=== PATIENT | female | born 1950 | race Caucasian/White ===

== ENCOUNTER 2016-10-27 19:01 | Inpatient (IN) | payer MEDICARE, MEDICAID ==
[2016-10-27] VITALS (7 sets, daily range): BP systolic 137–199; BP diastolic 69–89; PULSE 81–146; RESP 13–18; TEMP 98.2; O2SAT 98–100
[~2016-10-27] VITALS: Ht 165.1 cm; Wt 70.5 kg
[~2016-10-27 19:01] MED LIST: ALPR-138 PO; APIX2.5T PO; ATOR20TA42 PO; FLUO.05%ST EX; HYDRA50 PO; METF500 PO; METO50TA PO; NABU500T PO; ONDA4 PO; SPIR25TA PO; SULFPOW EACH EYE; TRAZ50TA4 PO
[2016-10-27] MEDS ORDERED: SODIUM CHLORIDE 0.9% FLUSH 5 ML FLUSH IVF PRN (19:15)
[2016-10-27] MEDS ORDERED: DILTIAZEM HCL 25 MG/5 ML VIAL IV ONE ×2 (19:15→20:15)
[2016-10-27] MEDS ORDERED: SODIUM CHLOR 0.9% 1000 ML INJ 1,000 ML IV SCH (19:21)
--- NOTE | 2016-10-27 19:22 | PD ---
HPI Chief Complaint: Cardiac Complaint Time Seen by Provider: 19:12 Travel History International Travel<30 days: No Contact w/Intl Traveler<30days: No Traveled to known affect area: No History of Present Illness HPI 66-year-old female with history of A. fib on Eliquis, here for evaluation of fast heart rate. Patient reports feeling palpitations and fast heart rate that started just prior to arrival. She is denying chest pain or dyspnea. She is complaining of some epigastric abdominal discomfort which she has been expressing for the last 3 weeks. No fevers, chills, cough, or recent illness. Her manager of purchasing is Dr. Kelly. FORMERLY [facility] Past Medical History Arthritis: Yes Anxiety: Yes Depression: No Cancer: No Cardiovascular Problems: Yes High Cholesterol: Yes COPD: Yes Diabetes: Yes Diminished Hearing: No Endocrine: No Gastrointestinal Disorders: Yes (ACID REFLUX; NAUSEA ) Genitourinary: Yes (INTERSTITIAL CYSTITIS) Hepatitis: No Hiatal Hernia: No Hypertension: Yes Immune Disorder: No Musculoskeletal: Yes Neurologic: No Psychiatric: Yes (ANXIETY ) Reproductive: No Respiratory: Yes (COPD) Thyroid Disease: Yes (HX OF THYROID ) Menopausal: Yes Past Surgical History Abdominal Surgery: Yes AICD: No Body Medical Devices: NONE Cardiac Surgery: No Cholecystectomy: Yes Ear Surgery: No Endocrine Surgery: No Eye Surgery: No Genitourinary Surgery: No Gynecologic Surgery: Yes (HYSTERERCTOMY ) Hysterectomy: Yes Joint Replacement: No Oral Surgery: No Pacemaker: No Thoracic Surgery: No Tonsillectomy: Yes Other Surgery: Yes Social History Alcohol Use: No Tobacco Use: No Substance Use: No Allergies-Medications (Allergen,Severity, Reaction): Coded Allergies: Atenolol (Verified Allergy, Severe, Dizziness, 10/27/16) Keflex (Verified Allergy, Severe, 10/27/16) Penicillin (Verified Allergy, Unknown, 10/27/16) Reported Meds & Prescriptions Reported Meds & Active Scripts Active Reported Flonase Nasal [place] (Fluticasone Nasal [place]) 50 Mcg/Act [place] 50 Mcg EACH NARE BID Proair Hfa 8.5 GM Inh (Albuterol Sulfate) 90 Mcg/Act Aer 2 Puff INH Q4-6H PRN 108 mcg/actuation Metformin (Metformin HCl) 500 Mg Tab 500 Mg PO BIDPC With meals [place] (Hydrocodone-Acetaminophen) 5-325 mg Tab 1 Tab PO Q6H PRN Diltiazem (Diltiazem HCl) 60 Mg Tab 60 Mg PO BID Stool Softener (Docusate Sodium) 100 Mg Cap 100 Mg PO DAILY Acidophilus Probiotic (Probiotic Product) 1 Tab Tab 1 Tab PO DAILY Cymbalta DR (Duloxetine HCl) 30 Mg Capdr 15 Mg PO DAILY Ketodan (Ketoconazole (Topical)) 2 % Aer 1 Applic TOPICAL DAILY Potassium 75 Mg Tab 1 Tab PO DAILY Sulfacetamide Sodium (Sulfacetamide Sodium (Ophth)) 10 % Marva 1 Drop EACH EYE HS Alprazolam 1 Mg Tab 1 Mg PO HS PRN Alprazolam 0.5 Mg Tab 0.5 Mg PO DAILY PRN Lipitor (Atorvastatin Calcium) 10 Mg Tab 10 Mg PO HS Eliquis (Apixaban) 5 Mg Tab 5 Mg PO BID Metoprolol Tartrate 25 Mg Tab 25 Mg PO BID Spironolactone 25 Mg Tab 25 Mg PO DAILY Hydralazine (Hydralazine HCl) 50 Mg Tab 50 Mg PO TID Take with a meal Review of Systems Except as stated in HPI: all other systems reviewed are Neg Physical Exam Narrative GENERAL: Well-developed, well-nourished, comfortable, no acute distress. SKIN: Warm and dry. No rash. No pallor. HEAD: Atraumatic. Normocephalic. EYES: Pupils equal and round. No scleral icterus. No injection or drainage. ENT: Mucous membranes pink and dry. NECK: Trachea midline. No JVD. CARDIOVASCULAR: Tachycardic, irregularly irregular. RESPIRATORY: No accessory muscle use. Clear to auscultation. Breath sounds equal bilaterally. GASTROINTESTINAL: Abdomen soft, non-tender, nondistended. MUSCULOSKELETAL: No obvious deformities. No clubbing. No cyanosis. No edema. NEUROLOGICAL: Awake and alert. No obvious cranial nerve deficits. Motor grossly within normal limits. Normal speech. PSYCHIATRIC: Appropriate mood and affect; insight and judgment normal. Data Data Last Documented VS Vital Signs Date Time Temp Pulse Resp B/P Pulse Ox O2 Delivery O2 Flow Rate FiO2 10/27/16 20:17 89 18 152/77 99 Nasal Cannula 2 10/27/16 19:35 98.2 Orders Electrocardiogram (10/27/16 19:14) Basic Metabolic Panel (Bmp) (10/27/16 19:14) B-Type Natriuretic Peptide (10/27/16 19:14) Ckmb (Isoenzyme) Profile (10/27/16 19:14) Complete Blood Count With Diff (10/27/16 19:14) Magnesium (Mg) (10/27/16 19:14) Prothrombin Time / Inr (Pt) (10/27/16 19:14) Act Partial Throm Time (Ptt) (10/27/16 19:14) Troponin I (10/27/16 19:14) Lipase (10/27/16 19:14) Chest, Single Ap (10/27/16 19:14) Ecg Monitoring (10/27/16 19:14) Bilateral Bp Monitoring (10/27/16 19:14) Iv Access Insert/Monitor (10/27/16 19:14) Oximetry (10/27/16 19:14) Oxygen Administration (10/27/16 19:14) Sodium Chloride 0.9% Flush (Ns Flush) (10/27/16 19:15) Diltiazem Inj (Cardizem Inj) (10/27/16 19:15) Sodium Chlor 0.9% 1000 Ml Inj (Ns 1000 M (10/27/16 19:21) Diltiazem Inj (Cardizem Inj) (10/27/16 20:15) CKMB (10/27/16 19:20) CKMB% (10/27/16 19:20) Electrocardiogram (10/27/16 ) Vital Signs (Adult) Q15MX4,Q4H (10/27/16 20:24) Candle Making Supervisor / Telemetry IFEOMA.Q8H (10/27/16 20:24) Cardiac Rhythm IFEOMA.Q8H (10/27/16 20:24) ^ Notify Dr: Other (10/27/16 20:24) Diltiazem Inj (Cardizem Inj) (10/27/16 20:30) Labs Laboratory Tests Test 10/27/16 19:20 White Blood Count 9.4 TH/MM3 Red Blood Count 5.40 MIL/MM3 Hemoglobin 14.2 GM/DL Hematocrit 43.5 % Mean Corpuscular Volume 80.5 FL Mean Corpuscular Hemoglobin 26.2 PG Mean Corpuscular Hemoglobin 32.6 % Concent Red Cell Distribution Width 12.2 % Platelet Count 321 TH/MM3 Mean Platelet Volume 8.0 FL Neutrophils (%) (Auto) 55.0 % Lymphocytes (%) (Auto) 34.8 % Monocytes (%) (Auto) 6.6 % Eosinophils (%) (Auto) 3.1 % Basophils (%) (Auto) 0.5 % Neutrophils # (Auto) 5.2 TH/MM3 Lymphocytes # (Auto) 3.3 TH/MM3 Monocytes # (Auto) 0.6 TH/MM3 Eosinophils # (Auto) 0.3 TH/MM3 Basophils # (Auto) 0.0 TH/MM3 CBC Comment DIFF FINAL Differential Comment Prothrombin Time 10.6 SEC Prothromb Time International 1.0 RATIO Ratio Activated Partial 33.6 SEC Thromboplast Time Sodium Level 134 MEQ/L Potassium Level 3.5 MEQ/L Chloride Level 94 MEQ/L Carbon Dioxide Level 25.8 MEQ/L Anion Gap 14 MEQ/L Blood Urea Nitrogen 7 MG/DL Creatinine 0.71 MG/DL Estimat Glomerular Filtration 82 ML/MIN Rate Random Glucose 135 MG/DL Calcium Level 9.1 MG/DL Magnesium Level 2.0 MG/DL Total Creatine Kinase 139 U/L Creatine Kinase MB 2.1 NG/ML Troponin I LESS THAN 0.02 NG/ML B-Type Natriuretic Peptide 22 PG/ML Lipase 436 U/L [facility] Medical Decision Making Medical Screen Exam Complete: Yes Emergency Medical Condition: Yes Medical Record Reviewed: Yes Differential Diagnosis A. fib with RVR, ACS, electrolyte abnormality, pancreatitis, gastritis, hepatobiliary disease Narrative Course Initial vital signs show heart rate 146, blood pressure 169/71, pulse ox 99% on 2 L nasal cannula, oral temp of 98.2F. CBC is unremarkable. BMP is unremarkable. Cardiac enzymes are negative. Lipase is 436. BNP is 22. Chest x-ray shows no acute disease. The patient was given 20 mg of IV Cardizem shortly after arrival to the emergency department without improvement in heart rate. She was emphatic 25 mg of IV Cardizem with improvement in heart rate transiently into the 80s/90s. Several minutes later the patient's heart rate returned to 130s to 140s. She was then started on a Cardizem drip. She will be admitted for further treatment and evaluation of A. fib with RVR. Case discussed with hospitalist Dr. Vázquez who will admit the patient to her service. Diagnosis Primary Impression: Atrial fibrillation with RVR Admitting Information Admitting Physician Requests: Admit Win Mayfield MD Oct 27, 2016 19:22
[2016-10-27 19:33] LABS: AUTOMATED NEUTROPHIL # 5.2 TH/MM3 (1.8-7.7); BASOPHIL % 0.5 % (0.0-2.0); EOSINOPHIL # 0.3 TH/MM3 (0-0.4); EOSINOPHIL % 3.1 % (0.0-4.0); HEMATOCRIT 43.5 % (35.0-46.0); HEMO FLAGS DIFF FINAL; LYMPH % 34.8 % (9.0-44.0); LYMPHOCYTE # 3.3 TH/MM3 (1.0-4.8); MEAN CELL VOLUME 80.5 FL (80.0-100.0); MEAN CORPUSCULAR HEMOGLOBIN 26.2 PG (27.0-34.0); MEAN CORPUSCULAR HGB CONC 32.6 % (32.0-36.0); MONO % 6.6 % (0.0-8.0); PLATELET COUNT 321 TH/MM3 (150-450); RED CELL DISTRIBUTION WIDTH 12.2 % (11.6-17.2); WHITE BLOOD COUNT 9.4 TH/MM3 (4.0-11.0)
--- NOTE | 2016-10-27 19:38 | RADHPO ---
EXAM DATE/TIME: 10/27/2016 19:26 [place] COMPARISON: CHEST SINGLE AP, November 18, 2014, 22:52. INDICATIONS : Chest pain starting today MEDICAL HISTORY : None. SURGICAL HISTORY : None. ENCOUNTER: Initial ACUITY: 1 day PAIN SCORE: 10/10 LOCATION: Bilateral chest FINDINGS: A single view of the chest demonstrates the lungs to be symmetrically aerated without evidence of mas s, infiltrate or effusion. The cardiomediastinal contours are unremarkable. Osseous structures are intact. CONCLUSION: No acute disease. Andrea Yeboah MD on October 27, 2016 at 19:36 Board Certified Radiologist. This report was verified electronically.
[2016-10-27] MEDS ORDERED: STOO100C PO (19:59)
[2016-10-27] MEDS ORDERED: DILT60TA PO (19:59)
[2016-10-27] MEDS ORDERED: METF500T PO (19:59)
[2016-10-27] MEDS ORDERED: APIX5TAB PO (19:59)
[2016-10-27] MEDS ORDERED: ALPR0.5T3 PO (19:59)
[2016-10-27] MEDS ORDERED: [UNRECOGNIZED DRUG - CODE] EACH EYE (19:59)
[2016-10-27] MEDS ORDERED: METO25TA3 PO (19:59)
[2016-10-27] MEDS ORDERED: FLUT1SPR5 EACH NARE (19:59)
[2016-10-27] MEDS ORDERED: PROB1TAB4 PO (19:59)
[2016-10-27] MEDS ORDERED: LIPI10TA PO (19:59)
[2016-10-27] MEDS ORDERED: NORC5TAB PO (19:59)
[2016-10-27] MEDS ORDERED: ALBUAER3 INH (19:59)
[2016-10-27] MEDS ORDERED: ALPR1TAB3 PO (19:59)
[2016-10-27] MEDS ORDERED: KETO2AER3 TOPICAL (19:59)
[2016-10-27] MEDS ORDERED: HYDR50TA15 PO (19:59)
[2016-10-27] MEDS ORDERED: CYMB30CA PO (19:59)
[2016-10-27] MEDS ORDERED: SPIR25TA PO (19:59)
[2016-10-27] MEDS ORDERED: POTA75TA PO (19:59)
[2016-10-27 20:02] LABS: CHLORIDE 94 MEQ/L (98-107); POTASSIUM 3.5 MEQ/L (3.5-5.1); SODIUM (NA) 134 MEQ/L (136-145)
[2016-10-27 20:06] LABS: ANION GAP 14 MEQ/L (5-15); BICARBONATE 25.8 MEQ/L (21.0-32.0)
[2016-10-27 20:07] LABS: APTT (PATIENT) 33.6 SEC (24.3-30.1); BLOOD UREA NITROGEN 7 MG/DL (7-18); PROTHROMBIN TIME - PATIENT 10.6 SEC (9.8-11.6)
[2016-10-27 20:09] LABS: GLOMERULAR FILTRATION RATE 82 ML/MIN (>89)
[2016-10-27 20:13] LABS: CREATINE KINASE 139 U/L (26-192)
[2016-10-27 20:25] LABS: CKMB 2.1 NG/ML (0.5-3.6)
[2016-10-27] MEDS ORDERED: DILTIAZEM INJ 125 MG in SODIUM CHLORIDE 0.9% INJ 100 ML IV SCH (20:30)
[2016-10-27] MEDS ORDERED: SODIUM CHLORIDE 0.9% FLUSH 5 ML FLUSH FLUSH PRN (21:30)
[2016-10-27] MEDS ORDERED: NALOXONE HCL 0.4 MG/ML AMP IV PRN (21:30)
[2016-10-28] VITALS (20 sets, daily range): BP systolic 109–166; BP diastolic 57–88; PULSE 64–104; RESP 11–24; TEMP 98.5–98.8; O2SAT 18–99
[2016-10-28] MEDS ORDERED: CHLORHEXIDINE GLUCONATE 2 % 1 PACK (2 CLOTHS)(taper/protocol) TOP SCH (04:00)
[2016-10-28 05:04] LABS: AUTOMATED NEUTROPHIL # 5.2 TH/MM3 (1.8-7.7); BASOPHIL % 0.5 % (0.0-2.0); EOSINOPHIL # 0.3 TH/MM3 (0-0.4); EOSINOPHIL % 2.9 % (0.0-4.0); HEMATOCRIT 38.6 % (35.0-46.0); HEMO FLAGS DIFF FINAL; LYMPH % 31.8 % (9.0-44.0); LYMPHOCYTE # 2.8 TH/MM3 (1.0-4.8); MEAN CELL VOLUME 80.6 FL (80.0-100.0); MEAN CORPUSCULAR HEMOGLOBIN 26.9 PG (27.0-34.0); MEAN CORPUSCULAR HGB CONC 33.4 % (32.0-36.0); NEUT % 57.8 % (16.0-70.0); PLATELET COUNT 290 TH/MM3 (150-450); RED CELL DISTRIBUTION WIDTH 12.9 % (11.6-17.2); WHITE BLOOD COUNT 8.9 TH/MM3 (4.0-11.0)
[2016-10-28 05:10] LABS: POTASSIUM 3.8 MEQ/L (3.5-5.1)
[2016-10-28 05:15] LABS: BICARBONATE 26.9 MEQ/L (21.0-32.0)
[2016-10-28] MEDS ORDERED: CHLORHEXIDINE GLUCONATE 2 % 1 PACK (2 CLOTHS)(extra cloths) TOP PRN (06:00)
[2016-10-28] MEDS ORDERED: SODIUM CHLORIDE 0.9% FLUSH 5 ML FLUSH FLUSH SCH (09:00)
[2016-10-28] MEDS ORDERED: APIXABAN 5 MG TABLET PO SCH (10:30)
[2016-10-28] MEDS ORDERED: METOPROLOL TARTRATE 25 MG TAB PO SCH (10:30)
[2016-10-28] MEDS ORDERED: ACETAMINOPHEN/HYDROcodone 325 MG/5 MG TAB PO PRN (10:30)
[2016-10-28] MEDS ORDERED: ALPRAZolam 1 MG TAB PO PRN (10:30)
[2016-10-28] MEDS ORDERED: DILTIAZEM HCL 60 MG TAB PO SCH (10:30)
[2016-10-28] MEDS ORDERED: ALPRAZolam 0.5 MG TAB PO PRN (10:30)
[2016-10-28] MEDS ORDERED: [UNRECOGNIZED DRUG - OTHER] TOPICAL SCH (10:45)
--- NOTE | 2016-10-28 10:51 | EKG ---
Date Performed: 10/28/2016 Time Performed: 07:56:42 PTAGE: 66 years EKG: Sinus rhythm with borderline 1st degree A-V block. Poor R wave progression - probable normal variant Borderline E CG PREVIOUS TRACING : 10/28/2016 00.32 Compared to prior tracing no significant change DOCTOR: Sam Terrazas Interpretating Date/Time 10/28/2016 10:50:12
[2016-10-28] MEDS ORDERED: DULoxetine HCl DR 30 MG CAP PO SCH (11:00)
--- NOTE | 2016-10-28 12:44 | EKG ---
Date Performed: 10/27/2016 Time Performed: 19:11:52 PTAGE: 66 years EKG: SUPER VENTRICULAR TACHYCARDIA NON SPECIFIC ST-T CHANGES SVT HAS REPLACED Sinus rhythm SINCE THE PRIOR TRACING Borderline ECG PREVIOUS TRACING : 11/18/2014 21.56 DOCTOR: Sam Terrazas Interpretating Date/Time 10/28/2016 12:43:18
--- NOTE | 2016-10-28 12:45 | EKG ---
Date Performed: 10/28/2016 Time Performed: 00:32:20 PTAGE: 66 years EKG: Sinus rhythm SINUS RHYTHM IS NEW COMPARED TO PRIOR TRACING Borderline ECG PREVIOUS TRACING : 10/27/2016 20.18 DOCTOR: Sam Terrazas Interpretating Date/Time 10/28/2016 12:45:02
--- NOTE | 2016-10-28 12:45 | EKG ---
Date Performed: 10/27/2016 Time Performed: 20:18:30 PTAGE: 66 years EKG: Atrial fibrillation with rapid ventricular response Inferior ST-T changes are nonspecific V ENTRICULAR RATE IS SLOWER COMPARED TO THE PRIOR TRACING Abnormal ECG PREVIOUS TRACING : 10/27/2016 19.11 DOCTOR: Sam Terrazas Interpretating Date/Time 10/28/2016 12:44:15
[2016-10-28] MEDS: METOPROLOL TARTRATE 25 MG TAB PO SCH ×3 (13:00→17:20)
[2016-10-28] MEDS: hydrALAZINE HCL 50 MG TAB PO SCH ×2 (14:01→17:20)
--- NOTE | 2016-10-28 15:35 | HHI.HP ---
HPI Service [facility] Hospitalists Primary Care Physician Matt Abreu M.D. Admission Diagnosis A. fib with RVR Diagnoses: Chief Complaint: Midsternal chest pain Palpitations Travel History International Travel<30 Days: No Contact w/Intl Traveler <30 Da: No Traveled to Known Affected Are: No History of Present Illness This is a 66-year-old female with past medical history significant for atrial fibrillation status post ablation in 2014, hypertension, diabetes, depression and anxiety who presents to [facility] ED with complaints of rapid heart rate that began at 1830 yesterday. Patient states she's had intermittent burning midsternal nonradicular chest pain, usually occurring after her evening meal, for the past several weeks occurring 2-3 times per week. She states that last night, following dinner, the pain was the worst it had ever been, 10/10. She took a Nexium followed by Gaviscon which failed to give her any improvement. She lied down for a short while and upon getting up to go try to take some Mylanta she developed palpitations. She has her own heart rate monitor at home and said that her rate was running around 150-160. She denies any associated chest pain or shortness of breath. She also denies any associated dizziness, lightheadedness, vision changes, slurred speech or weakness. She denies any recent illness or ill contacts. Denies any fever, chills, nausea or vomiting. She has not noticed any black, tarry or bloody stools. She has no hematuria or dysuria. Her hot frame tender is Dr. Kelly and has recently recommended that she undergo a stress test the patient is not followed through as of yet. In the ED, her blood pressure is 199/89, she was noted to be in atrial fibrillation with a heart rate of 146. Review of Systems Constitutional: DENIES: Diaphoretic episodes, Fatigue, Fever, Chills, Dizziness Endocrine: DENIES: Polydipsia, Polyuria Eyes: DENIES: Vision loss, Double Vision Ears, nose, mouth, throat: DENIES: Vertigo, Throat pain, Running Nose Respiratory: DENIES: Cough, Wheezing, Sputum production, Shortness of breath Cardiovascular: COMPLAINS OF: Chest pain (midsternal, as stated in history of present illness), Palpitations ( yesterday, starting at 6:30 PM), DENIES: Syncope, Dyspnea on Exertion, Lower Extremity Edema, Orthopnea Gastrointestinal: DENIES: Abdominal pain, Black stools, Bloody stools, Diarrhea , Nausea, Vomiting Genitourinary: DENIES: Hematuria, Dysuria Musculoskeletal: COMPLAINS OF: Back pain (chronic, unchanged), DENIES: Neck pain Integumentary: DENIES: Pruritus, Rash Hematologic/lymphatic: DENIES: Lymphadenopathy Immunologic/allergic: DENIES: Urticaria Neurologic: DENIES: Headache, Localized weakness, Paresthesias, Speech Problems Psychiatric: COMPLAINS OF: Anxiety (chronic), Depression (recently started on Cymbalta), DENIES: Confusion, Suicidal Ideation Past Family Social History Past Medical History History of atrial fibrillation, status post ablation 2014, currently on Eliquis Diabetes Hypertension Anxiety Depression Past Surgical History Cardiac ablation Cholecystectomy Partial hysterectomy Reported Medications Flonase Nasal [place] (Fluticasone Nasal [place]) 50 Mcg/Act [place] 50 Mcg EACH NARE BID Proair Hfa 8.5 GM Inh (Albuterol Sulfate) 90 Mcg/Act Aer 2 Puff INH Q4-6H PRN 108 mcg/actuation Metformin (Metformin HCl) 500 Mg Tab 500 Mg PO BIDPC With meals [place] (Hydrocodone-Acetaminophen) 5-325 mg Tab 1 Tab PO Q6H PRN Diltiazem (Diltiazem HCl) 60 Mg Tab 60 Mg PO BID Stool Softener (Docusate Sodium) 100 Mg Cap 100 Mg PO DAILY Acidophilus Probiotic (Probiotic Product) 1 Tab Tab 1 Tab PO DAILY Cymbalta DR (Duloxetine HCl) 30 Mg Capdr 15 Mg PO DAILY Ketodan (Ketoconazole (Topical)) 2 % Aer 1 Applic TOPICAL DAILY Potassium 75 Mg Tab 1 Tab PO DAILY Sulfacetamide Sodium (Sulfacetamide Sodium (Ophth)) 10 % Marva 1 Drop EACH EYE HS Alprazolam 1 Mg Tab 1 Mg PO HS PRN Alprazolam 0.5 Mg Tab 0.5 Mg PO DAILY PRN Lipitor (Atorvastatin Calcium) 10 Mg Tab 10 Mg PO HS Eliquis (Apixaban) 5 Mg Tab 5 Mg PO BID Metoprolol Tartrate 25 Mg Tab 25 Mg PO BID Spironolactone 25 Mg Tab 25 Mg PO DAILY Hydralazine (Hydralazine HCl) 50 Mg Tab 50 Mg PO TID Take with a meal Allergies: Coded Allergies: Atenolol (Verified Allergy, Severe, Dizziness, 10/27/16) Keflex (Verified Allergy, Severe, 10/27/16) Penicillin (Verified Allergy, Unknown, 10/27/16) Active Ordered Medications Current Medications Medications (Trade) Dose Ordered Sig/Gian Route Start Time Stop Time Status Last Admin (Cardizem Inj/NS Inj) 125 ml @ 0 mls/hr TITRATE IV 10/27/16 20:30 (NS Flush) 2 ml UNSCH PRN FLUSH 10/27/16 21:30 (NS Flush) 2 ml BID FLUSH 10/28/16 09:00 (Narcan Inj) 0.4 mg UNSCH PRN IV 10/27/16 21:30 Miscellaneous Information Patient in critical care unit? Ass... Q361D XX 10/28/16 06:00 10/28/16 05:56 (Chlorhexidine 2% Cloth) 3 pack DAILY@04 TOP 10/28/16 04:00 11/01/16 04:01 10/28/16 04:00 (Chlorhexidine 2% Cloth) 3 pack UNSCH PRN TOP 10/28/16 06:00 11/02/16 05:50 10/28/16 05:56 (Xanax) 0.5 mg DAILY PRN PO 10/28/16 10:30 (Xanax) 1 mg HS PRN PO 10/28/16 10:30 (Eliquis) 5 mg BID PO 10/28/16 10:30 10/28/16 14:00 (Lipitor) 10 mg HS PO 10/28/16 21:00 (Cardizem) 60 mg BID PO 10/28/16 10:30 10/28/16 14:00 (Colace) 100 mg DAILY PO 10/29/16 09:00 (Cymbalta Dr) 30 mg DAILY PO 10/28/16 11:00 (Apresoline) 50 mg TID PO 10/28/16 13:00 10/28/16 14:01 (Alicia 5-325 Mg) 1 tab Q6H PRN PO 10/28/16 10:30 10/28/16 14:11 (Glucophage) 500 mg BIDPC PO 10/28/16 18:00 (Aldactone) 25 mg DAILY PO 10/29/16 09:00 (Bleph-10 Opth Soln) 1 drop HS EACH EYE 10/28/16 21:00 Patient Own Medication PT OWN MED:KETODAN DAILY TOPICAL 10/28/16 10:45 Hold (Lactinex) 1 tab DAILY PO 10/29/16 09:00 (Lopressor) 50 mg TID PO 10/28/16 10:30 10/28/16 13:00 (KCl) 20 meq DAILY PO 10/29/16 09:00 Family History Family medical history significant for hypertension, coronary artery disease. Social History Patient denies any tobacco use, alcohol consumption or illicit drug use. Physical Exam Vital Signs Vital Signs Date Time Temp Pulse Resp B/P Pulse Ox O2 Delivery O2 Flow Rate FiO2 10/28/16 12:00 76 10/28/16 12:00 98.5 75 20 140/81 96 10/28/16 11:00 76 18 95 10/28/16 10:00 78 20 94 10/28/16 10:00 78 10/28/16 09:00 98.7 74 18 157/79 97 10/28/16 08:00 68 10/28/16 08:00 68 10/28/16 07:00 98.6 64 20 151/85 94 10/28/16 07:00 66 20 135/70 94 10/28/16 06:00 70 18 124/67 93 10/28/16 06:00 70 10/28/16 05:09 20 97 10/28/16 05:00 104 125/71 93 10/28/16 04:00 98.5 72 14 126/62 93 10/28/16 04:00 80 10/28/16 03:00 72 20 109/57 99 10/28/16 02:00 18 136/70 95 10/28/16 02:00 86 20 136/70 97 10/28/16 01:00 98.8 90 24 166/86 97 10/28/16 01:00 90 10/28/16 01:00 98.8 90 11 166/88 94 10/28/16 01:00 96 21 10/28/16 00:02 82 16 152/84 99 Nasal Cannula 2 3/8/17 23:25 82 16 152/81 100 Nasal Cannula 2 10/27/16 22:50 100 Nasal Cannula 2 10/27/16 22:50 87 16 143/77 100 Nasal Cannula 2 10/27/16 22:00 81 16 138/72 10/27/16 21:03 92 13 137/69 99 Nasal Cannula 10/27/16 20:17 89 18 152/77 99 Nasal Cannula 2 10/27/16 20:17 99 Nasal Cannula 2 10/27/16 19:35 98.2 146 18 169/71 98 10/27/16 19:20 146 18 169/71 99 Nasal Cannula 2 10/27/16 19:20 98.2 146 18 199/89 99 10/27/16 19:20 18 99 Room Air 10/27/16 19:20 99 Nasal Cannula 2 Physical Exam GENERAL: This is a well-nourished, well-developed patient, in no apparent distress. A&Ox3, SKIN: No rashes, ecchymoses or lesions. Cool and dry. HEAD: Atraumatic. Normocephalic. No temporal or scalp tenderness. EYES: Pupils equal round and reactive. Extraocular motions intact. No scleral icterus. No injection or drainage. ENT: Nose without bleeding, purulent drainage or septal hematoma. Throat without erythema, tonsillar hypertrophy or exudate. Uvula midline. Airway patent. NECK: Trachea midline. No JVD or lymphadenopathy. Supple, nontender, no meningeal signs. CARDIOVASCULAR: Regular rate and rhythm without murmurs, gallops, or rubs. RESPIRATORY: Clear to auscultation. Breath sounds equal bilaterally. No wheezes , rales, or rhonchi. GASTROINTESTINAL: Abdomen soft, non-tender, nondistended. No hepato-splenomegaly , or palpable masses. No guarding. MUSCULOSKELETAL: Extremities without clubbing, cyanosis, or edema. No joint tenderness, effusion, or edema noted. No calf tenderness. NEUROLOGICAL: Awake and alert. Cranial nerves II through XII intact. Motor and sensory grossly within normal limits. Five out of 5 muscle strength in all muscle groups. Normal speech. Laboratory Laboratory Tests Test 10/27/16 10/28/16 10/28/16 10/28/16 19:20 00:30 02:41 04:35 White Blood Count 9.4 8.9 Red Blood Count 5.40 4.80 Hemoglobin 14.2 12.9 Hematocrit 43.5 38.6 Mean Corpuscular Volume 80.5 80.6 Mean Corpuscular Hemoglobin 26.2 26.9 Mean Corpuscular Hemoglobin 32.6 33.4 Concent Red Cell Distribution Width 12.2 12.9 Platelet Count 321 290 Mean Platelet Volume 8.0 8.2 Neutrophils (%) (Auto) 55.0 57.8 Lymphocytes (%) (Auto) 34.8 31.8 Monocytes (%) (Auto) 6.6 7.0 Eosinophils (%) (Auto) 3.1 2.9 Basophils (%) (Auto) 0.5 0.5 Neutrophils # (Auto) 5.2 5.2 Lymphocytes # (Auto) 3.3 2.8 Monocytes # (Auto) 0.6 0.6 Eosinophils # (Auto) 0.3 0.3 Basophils # (Auto) 0.0 0.0 CBC Comment DIFF FINAL DIFF FINAL Differential Comment Prothrombin Time 10.6 Prothromb Time International 1.0 Ratio Activated Partial 33.6 Thromboplast Time Sodium Level 134 136 Potassium Level 3.5 3.8 Chloride Level 94 101 Carbon Dioxide Level 25.8 26.9 Anion Gap 14 8 Blood Urea Nitrogen 7 6 Creatinine 0.71 0.64 Estimat Glomerular Filtration 82 93 Rate Random Glucose 135 105 Calcium Level 9.1 8.4 Magnesium Level 2.0 Total Creatine Kinase 139 108 Creatine Kinase MB 2.1 Troponin I LESS THAN 0.02 0.03 B-Type Natriuretic Peptide 22 Lipase 436 Nasal Screen MRSA (PCR) NEGATIVE Test 10/28/16 07:45 Total Creatine Kinase 98 Troponin I 0.05 Result Diagram: 10/28/16 0435 10/28/16 0435 Imaging Last 48 hours Impressions Chest X-Ray 10/27/164 Signed Impressions: Service Date/Time: Thursday, October 27, 2016 19:26 - CONCLUSION: No acute disease. Andrea Yeboah MD Assessment and Plan Assessment and Plan 66-year-old female with past medical history significant for atrial fibrillation status post ablation in 2014, hypertension, diabetes, depression and anxiety who presents to [facility] ED with complaints of rapid heart rate that began at 1830 yesterday. Atrial fibrillation with RVR - now in NSR - Patient admitted with continuous cardiac monitoring - Currently patient is in NSR with a heart rate of 77 - she was given IV Cardizem in the ED and her metoprolol dose was increased - Will discuss with patients hot frame tender Dr. Kelly - continue on home dose of Eliquis and Diltiazem, home Metoprolol dose increased - Obtain TSH level - Troponins cycled - 0.02 -> 0.03 -> 0.05 Diabetes - Obtain A1c - Accu-Chek - Insulin sliding scale - Continue Metformin Hypertension - Resume home meds - metoprolol dose increased for rate control - Monitor BP Dyslipidemia - resume home Lipitor dose Anxiety/depression - resume home meds DVT prophylaxis - resume home Eliquis Written by Radha Braden PA-C acting as scribe for Dr. Quezada on 10/28/16 at 16:04. Patient feels well. No complaints of chest pain or palpitations. Patient in NSR with HR 73. I (Dr. Quezada) Called Dr. Kelly however he is currently out of town. Patient may be discharged to home. Follow up with PCP and Dr. Kelly as outpatient. Patient advised to return to the ED if she developed chest pain or palpitations. Discharge patient to home Condition on discharge: Improved Diabetic/Heart healthy Diet as tolerated Ad Dori activity Rx written: Metoprolol 50mg po TID Follow-up with primary care physician and hot frame tender Dr. Kelly in one week All or portions of this note were transcribed by nicola Garcia. I, Dr. Saira Quezada personally performed the history, physical exam, and medical decision making; and confirmed the accuracy of the information in the transcribed note. Authenticated by Dr. Saira Quezada on 10/28/16 at 18:39. Physician Certification 2 Midnight Certification Type: Admission for Inpatient Services Order for Inpatient Services The services are ordered in accordance with Medicare regulations or non- Medicare payer requirements, as applicable. In the case of services not specified as inpatient-only, they are appropriately provided as inpatient services in accordance with the 2-midnight benchmark. Estimated LOS (days): 2 2 days is the estimated time the patient will need to remain in the hospital, assuming treatment plan goals are met and no additional complications. Post-Hospital Plan: Not yet determined Radha Braden Oct 28, 2016 15:35 Saira Quezada MD Oct 28, 2016 18:39
[2016-10-28] MEDS ORDERED: INSULIN ASPART SUPPLEMENTAL SCALE SQ SCH (16:00)
[2016-10-28] MEDS ORDERED: GLUCAGON 1 MG/ML VIAL OTHER PRN (16:00)
[2016-10-28] MEDS ORDERED: DEXTROSE 50% IN WATER 50 ML VIAL(D50) IV PUSH PRN (16:00)
[2016-10-28] MEDS ORDERED: METO25TA3 PO (16:39)
--- NOTE | 2016-10-28 16:41 | HHI.DCPOC ---
Discharge Care Plan Diagnosis: (1) Atrial fibrillation with RVR (2) Heart palpitations (3) Chest pain Goals to Promote Your Health * To prevent worsening of your condition and complications * To maintain your health at the optimal level Directions to Meet Your Goals Take your medications as prescribed Follow your dietary instruction Follow activity as directed Keep your appointments as scheduled Take your immunizations and boosters as scheduled If your symptoms worsen call your PCP, if no PCP go to Urgent Care Center or Emergency Room Smoking is Dangerous to Your Health. Avoid second hand smoke Call the 24-hour hour crisis hotline for domestic abuse at Radha Braden Oct 28, 2016 16:41
[2016-10-28] MEDS ORDERED: metFORMIN HCL 500 MG TAB PO SCH (18:00)
[2016-10-28] MEDS ORDERED: SULFACETAMIDE SODIUM 10% OPTH SOLN 5 ML BTL EACH EYE SCH (21:00)
[2016-10-28] MEDS ORDERED: ATORVASTATIN 10 MG TAB PO SCH (21:00)
[2016-10-29] MEDS ORDERED: NON-FORMULARY DRUG (Potassium 1 TAB) PO SCH (09:00)
[2016-10-29] MEDS ORDERED: DOCUSATE SODIUM 100 MG CAP PO SCH (09:00)
[2016-10-29] MEDS ORDERED: LACTOBACILLUS ACIDOPHILUS TAB PO SCH (09:00)
[2016-10-29] MEDS ORDERED: POTASSIUM CHLORIDE 20 MEQ CONTROLLED RELEASE TAB PO SCH (09:00)
[2016-10-29] MEDS ORDERED: SPIRONOLACTONE 25 MG TAB PO SCH (09:00)
== END 2016-10-28 18:30 | disposition home or self-care (01) | DRG 310 ==
LOC: PHED 19:01 → PHEDA 20:55 → PHICU 10-28 00:50
PROVIDERS: ADMIT Hospitalist; ATTEND Hospitalist
DX: I48.91 Unspecified atrial fibrillation (principal); J44.9 Chronic obstructive pulmonary disease, unspecified; K21.9 Gastro-esophageal reflux disease without esophagitis; M19.90 Unspecified osteoarthritis, unspecified site; F41.9 Anxiety disorder, unspecified; I10 Essential (primary) hypertension; E11.9 Type 2 diabetes mellitus without complications; E78.5 Hyperlipidemia, unspecified; E78.00 Pure hypercholesterolemia, unspecified; F32.9 Major depressive disorder, single episode, unspecified; E07.9 Disorder of thyroid, unspecified; Z79.02 Long term (current) use of antithrombotics/antiplatelets; Z88.1 Allergy status to other antibiotic agents; Z88.0 Allergy status to penicillin; Z88.8 Allergy status to other drugs, medicaments and biological substances; Z79.84 Long term (current) use of oral hypoglycemic drugs
CPT/HCPCS: 71010; 80048; 82550; 82552; 83690; 83735; 83880; 84443; 84484; 85025; 85610; 85730; 87641; 93005; 96361; 96374; 96376; J7030